=== PATIENT | male | born 1965 | race African-American/Black ===

== ENCOUNTER 2016-06-30 11:19 | Emergency (ER) | payer SELFPAY ==
[~2016-06-30] VITALS: Ht 182.9 cm; Wt 93.0 kg
[2016-06-30 12:05] LABS: BASOPHILS % (AUTO) 0.8 % (0.0-2.0); EOSINOPHILS % (AUTO) 1.9 % (0.0-3.0); MEAN CORPUSCULAR HGB CONC 33.1 G/DL (32.0-36.0); MEAN CORPUSCULAR VOLUME 84 FL (80-99); MEAN PLATELET VOLUME 6.9 FL (6.5-10.1); MONOCYTES % (AUTO) 10.3 % (1.0-10.0); NEUTROPHILS % (AUTO) 57.1 % (45.0-75.0); PLATELET COUNT 297 K/UL (150-450); RED BLOOD COUNT 5.16 M/UL (4.70-6.10); RED CELL DISTRIBUTION WIDTH 11.5 % (11.6-14.8); WHITE BLOOD COUNT 5.3 K/UL (4.8-10.8)
[2016-06-30 12:19] LABS: INR 1.1 (0.9-1.1)
[2016-06-30 12:24] LABS: ALANINE AMINOTRANSFERASE 23 U/L (3-41); ALBUMIN/GLOBULIN RATIO 1.4 (1.0-2.7); ANION GAP 11 (5-15); ASPARTATE AMINO TRANSFERASE 19 U/L (5-40); CALCIUM 9.2 mg/dL (8.6-10.2); CARBON DIOXIDE 29 mEQ/L (20-30); CHLORIDE 99 mEQ/L (98-107); CREATININE 1.2 mg/dL (0.7-1.2); GLOMERULAR FILTRATION RATE > 60 mL/min (>60); HEMOLYSIS 11; SODIUM 139 mEQ/L (135-145); TOTAL PROTEIN 6.7 g/dL (6.6-8.7); TROPONIN I < 0.30 ng/mL (<=0.30)
[2016-06-30 12:30] VITALS: BP 128/78
[2016-06-30 12:35] LABS: CKMB 1.7 ng/mL (< 6.7)
[2016-06-30 13:00] VITALS: BP 131/74
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
[2016-06-30 14:00] VITALS: BP 139/83
--- NOTE | 2016-06-30 15:15 | Diagnostic Imaging Report ---
Indication: Chest Pain Comparison: None A single view chest radiograph was obtained. Findings: Cardiomediastinal appearance is within normal limits for age. Pulmonary vascularity is appropriate. The diaphragmatic contour is smooth and costophrenic angles are sharp. No pleural effusions are identified. The bones are unremarkable. Impression: No acute findings
== END 2016-06-30 14:00 | disposition home or self-care (01) ==
LOC: EDBD 11:19 → EMR 12:50
DX: R07.89 Other chest pain (principal)
CPT/HCPCS: 36415; 71010; 80053; 80300; 82550; 82553; 84484; 85025; 85610; 85730; 93005; 96374